=== PATIENT | female | born 1980 | race Caucasian/White ===

== ENCOUNTER 2017-04-17 02:04 | Emergency (ER) | payer BC ==
[~2017-04-17] VITALS: Ht 170.2 cm; Wt 107.3 kg
[2017-04-17 02:05] VITALS: BP 154/106
[2017-04-17 02:29] LABS: CULTURE INDICATED? YES; MICROSCOPIC INDICATED
[2017-04-17 06:45] LABS: HCG UR SG 1.017 (1.003-1.030)
== END 2017-04-17 06:43 | disposition home or self-care (01) ==
LOC: ED 06:31
DX: N12 Tubulo-interstitial nephritis, not specified as acute or chronic (principal); M54.5 Low back pain
CPT/HCPCS: 81001; 81025; 87077; 87086; 87186; 99284

== ENCOUNTER → 2017-04-23 | Outpatient (CLI) | payer BC | LOC: CFH 07:29 | PROVIDERS: ATTEND Physician Assistant | DX: N63.12 Unspecified lump in the right breast, upper inner quadrant (principal); N63.20 Unspecified lump in the left breast, unspecified quadrant | CPT/HCPCS: 77066 ==

== ENCOUNTER → 2017-05-04 | Outpatient (CLI) | payer BC ==
[~2017-05-04] MED LIST: LIDOCAINE 1%, 20ML ONE
== END | disposition home or self-care (01) ==
LOC: CFH 10:05
PROVIDERS: ATTEND Physician Assistant
DX: N63.12 Unspecified lump in the right breast, upper inner quadrant (principal)
CPT/HCPCS: 19083; 77065; 88305; J3490

== ENCOUNTER 2017-06-15 08:41 | Day surgery (SDC) | payer BC ==
[2017-06-12 10:06] LABS: ALANINE AMINOTRANSFERASE 22 U/L (12-78); ALKALINE PHOSPHATASE 72 U/L (45-117); BILIRUBIN,TOTAL 0.5 mg/dL (0.2-1.0); CREATININE 0.73 mg/dL (0.55-1.02); TOTAL PROTEIN 7.3 g/dL (6.4-8.2)
[2017-06-12 10:13] LABS: ALBUMIN 3.3 g/dL (3.4-5.0); ANION GAP 9 mmol/L (5-15); CALCIUM 8.4 mg/dL (8.5-10.1); CHLORIDE 101 mmol/L (98-107)
[~2017-06-15] VITALS: Ht 165.1 cm; Wt 106.8 kg
[~2017-06-15 08:41] MED LIST changes: +BUPIVACAINE/PF 0.5% ONE; +BUPIVACAINE/PF-EPI 0.5% 1:200K ONE; +CHLO25TA PO; +HYDR1TAB12 PO; -LIDOCAINE 1%, 20ML ONE; +OMEG-170 PO
[2017-06-15] MEDS ORDERED: LIDOCAINE 1%, 10ML ONE (09:00)
[2017-06-15] MEDS ORDERED: DIAZEPAM 5 MG/ML, 2ML IVPush PRN (09:30)
[2017-06-15] MEDS ORDERED: LABETALOL 5MG/ML, 20ML IV PRN (09:30)
[2017-06-15] MEDS ORDERED: hydrALAzine 20 MG/ML, 1ML IV PRN (09:30)
[2017-06-15] MEDS ORDERED: MIDAZOLAM 1 MG/ML, 2ML IV PRN (09:30)
[2017-06-15] MEDS ORDERED: MEPERIDINE/PF 25MG/0.5ML IVPush PRN (09:30)
[2017-06-15] MEDS ORDERED: FENTANYL PF 100 MCG/2ML IV PRN (09:30)
[2017-06-15] MEDS ORDERED: OXYcodone 5 MG/5 ML ORAL.SOL UDC PO PRN (09:30)
[2017-06-15] MEDS ORDERED: PROMETHAZINE 12.5 MG SUPP PR PRN (09:30)
[2017-06-15] MEDS ORDERED: morphine SULFATE 10 MG/ML, 1ML IV PRN (09:30)
[2017-06-15] MEDS ORDERED: PROMETHAZINE 25 MG/ML, 1ML IV PRN (09:30)
[2017-06-15] MEDS ORDERED: ONDANSETRON 2MG/ML, 2ML IVPush PRN (09:30)
[2017-06-15] MEDS ORDERED: LORazepam 2 MG/ML, 1ML IVPush PRN (09:30)
[2017-06-15] MEDS ORDERED: ALBUTEROL SULFATE 2.5 MG/3 ML NPPB PRN (09:30)
[2017-06-15] MEDS ORDERED: ALBUTEROL/IPRATROPIUM 2.5MG/0.5MG, 3 ML NPPB PRN (09:30)
[2017-06-15] MEDS ORDERED: MIDAZOLAM 1 MG/ML, 2ML ONE (10:02)
[2017-06-15] MEDS ORDERED: FENTANYL PF 100 MCG/2ML ONE (10:02)
[2017-06-15] MEDS ORDERED: LACTATED RINGERS 1,000 ML IV SCH (10:06)
[2017-06-15 10:07] VITALS: BP 131/90
[2017-06-15] MEDS ORDERED: ACETAMINOPHEN 500 MG TABLET PO ONE (10:30)
[2017-06-15] MEDS ORDERED: ONDANSETRON ODT 8 MG PO ONE (10:30)
[2017-06-15] MEDS ORDERED: SCOPOLAMINE PATCH, 1.5MG PATCH.TD72 TD ONE ×2 (10:30→10:46)
[2017-06-15] MEDS ORDERED: GABAPENTIN 300 MG CAPSULE PO ONE (10:30)
[2017-06-15] MEDS ORDERED: ACETAMINOPHEN 500 MG TABLET ONE (10:46)
[2017-06-15] MEDS ORDERED: ONDANSETRON ODT 8 MG ONE (10:47)
[2017-06-15] MEDS ORDERED: OxyconTIN ER 10 MG TAB.ER ONE (10:48)
[2017-06-15 10:55] LABS: HCG UR SG 1.021 (1.003-1.030)
[2017-06-15] MEDS ORDERED: OxyconTIN ER 10 MG TAB.ER PO ONE (11:00)
[2017-06-15] MEDS ORDERED: MEPERIDINE/PF 50 MG/ML ONE (11:24)
[2017-06-15] MEDS ORDERED: DEXAMETHASONE 4 MG/ML, 1ML ONE (11:24)
[2017-06-15] MEDS ORDERED: CEFAZOLIN 1,000 MG ONE (11:24)
[2017-06-15] MEDS ORDERED: PROPOFOL 10 MG/ML, 20ML ONE (11:24)
== END 2017-06-15 14:05 | disposition home or self-care (01) ==
LOC: CFH 08:41 → OUT 14:05
PROVIDERS: ATTEND Surgery
DX: D24.1 Benign neoplasm of right breast (principal); I10 Essential (primary) hypertension; Z98.890 Other specified postprocedural states
CPT/HCPCS: 19125; 19281; 36415; 76098; 80053; 81025; 88307; J0690; J1100; J2175; J2250; J2704; J3010; J3490; J7120; Q0162